=== PATIENT | female | born 1985 | race Asian ===

== ENCOUNTER 2020-01-31 09:39 | Emergency (ER) | payer MEDICAID ==
[~2020-01-31] VITALS: Ht 177.8 cm; Wt 79.5 kg
[2020-01-31] MEDS ORDERED: KETOROLAC TROMETHAMINE 60 MG/2 ML VIAL IM ONE (11:00)
[2020-01-31 11:06] VITALS: BP 120/79
== END 2020-01-31 12:45 | disposition home or self-care (01) ==
LOC: EMS 09:40
DX: S30.0XXA Contusion of lower back and pelvis, initial encounter (principal); V00.131A Fall from skateboard, initial encounter; Y93.51 Activity, roller skating (inline) and skateboarding; Y92.89 Other specified places as the place of occurrence of the external cause; Y99.8 Other external cause status
CPT/HCPCS: 72220; 96372; 99283; J1885